=== PATIENT | female | born 1975 ===

== ENCOUNTER → 2018-08-26 | Outpatient (CLI) | payer MEDICARE, OTHER ==
--- NOTE | 2018-08-27 11:02 | MM ---
Reason for exam: screening (asymptomatic). Last mammogram was performed 1 year and 5 months ago. History: Patient is postmenopausal. Taking estrogen for 2 years beginning at age 40. Physical Findings: A clinical breast exam by your physician is recommended on an annual basis and results should be correlated with mammographic findings. MG 3D Screening Mammo W/Cad Bilateral CC and MLO view(s) were taken. Prior study comparison: March 27, 2017, mammogram, performed at [place]. January 03, 2016, mammogram, performed at [place]. The breast tissue is heterogeneously dense. This may lower the sensitivity of mammography. There is chronic nodularity in the left breast. No significant changes when compared with prior studies. ASSESSMENT: Benign, BI-RAD 2 RECOMMENDATION: Routine screening mammogram of both breasts in 1 year.
== END | disposition home or self-care (01) ==
LOC: RADMAMWWP 16:54
PROVIDERS: ATTEND Family Medicine
DX: Z12.31 Encounter for screening mammogram for malignant neoplasm of breast (principal)
CPT/HCPCS: 77063; 77067

== ENCOUNTER 2019-04-06 13:28 | Emergency (ER) | payer MEDICARE, OTHER ==
[2019-04-06] MEDS ORDERED: SODIUM CHLORIDE 0.9% 500 ML 500 ML IV STA (14:07)
[2019-04-06] MEDS ORDERED: LORazepam 2 MG/ML INJ IV STA (14:08)
[2019-04-06 15:29] LABS: Basophils % (A) 0 %; Eosinophils # (A) 0.1 k/uL (0-0.7); Eosinophils % (A) 1 %; HCT 38.3 % (34.0-46.0); HGB 12.4 gm/dL (11.4-16.0); Lymphocytes # (A) 1.2 k/uL (1.0-4.8); Lymphocytes % (A) 17 %; MCH 29.1 pg (25.0-35.0); MCHC 32.5 g/dL (31.0-37.0); MCV 89.6 fL (80.0-100.0); Mean Platelet Volume 6.6; Monocytes # (A) 0.2 k/uL (0-1.0); Monocytes % (A) 3 %; Neutrophils # (A) 5.4 k/uL (1.3-7.7); Neutrophils % (A) 77 %; Platelet Count 235 k/uL (150-450); RBC 4.28 m/uL (3.80-5.40); RDW 13.8 % (11.5-15.5)
[2019-04-06 15:37] LABS: ALT 18 U/L (9-52); AST 19 U/L (14-36); African American GFR (CKD) >90 (>60 ml/min/1.73 sqM); Albumin 4.3 g/dL (3.5-5.0); Alkaline Phosphatase 76 U/L (38-126); Anion Gap 9 mmol/L; Blood Urea Nitrogen 14 mg/dL (7-17); Calcium 9.7 mg/dL (8.4-10.2); Carbon Dioxide 28 mmol/L (22-30); Chloride 105 mmol/L (98-107); Glucose 130 mg/dL (74-99); Magnesium 1.8 mg/dL (1.6-2.3); Potassium 3.4 mmol/L (3.5-5.1); Sodium 142 mmol/L (137-145); Total Bilirubin 0.2 mg/dL (0.2-1.3); Total Protein 6.7 g/dL (6.3-8.2)
[2019-04-06 15:41] LABS: INR 0.9 (<1.2)
[2019-04-06 15:42] LABS: D-Dimer 0.24 mg/L FEU (<0.60); Partial Thromboplastin Time 24.4 sec (22.0-30.0); Prothrombin Time 9.6 sec (9.0-12.0)
[2019-04-06 15:53] LABS: T4, Free (Free Thyroxine) 0.97 ng/dL (0.78-2.19)
--- NOTE | 2019-04-06 16:22 | XR ---
EXAMINATION TYPE: XR chest 2V DATE OF EXAM: 04/06/2019 COMPARISON: NONE HISTORY: Shortness of breath and palpitations TECHNIQUE: Frontal and lateral views of the chest are obtained. FINDINGS: There is no focal air space opacity, pleural effusion, or pneumothorax seen. Central perib ronchial cuffing is noted on the lateral view. The cardiac silhouette size is within normal limits. The osseous structures are intact. IMPRESSION: No acute cardiopulmonary process. There is mild central peribronchial cuffing on the lat eral view that can be seen in reactive or infectious airway disease such as bronchitis.
[2019-04-06] MEDS ORDERED: methylPREDNISolone SOD SUCCI 125 MG/2 ML VIAL IV STA (16:31)
[2019-04-06] MEDS ORDERED: cefTRIAXone IN SWFI 1,000 MG/10 ML SYRINGE IVP STA (16:31)
[2019-04-06] MEDS ORDERED: IPRATROPIUM-ALBUTEROL 3 ML NEB INHALATION STA (16:31)
--- NOTE | 2019-04-06 16:35 | ED ---
General Adult HPI - General Chief complaint: Arrhythmia/Palpitations Stated complaint: Heart Racing, Shaking, Shortness of breath Time Seen by Provider: 04/06/19 13:30 Source: patient, RN notes reviewed Mode of arrival: wheelchair Limitations: no limitations - History of Present Illness Initial comments: This is a 43-year-old female presents emergency department with past medical history significant for smoking. Patient states the last 3 or 4 days she's had quite a bit of a cough and is feeling somewhat short of breath but she's also noted that she's having palpitations that started at work today. Patient states she felt as though her heart was racing today. Patient denies any chest pain. Patient denies any abdominal pain. Patient denies any lightheadedness or dizziness. Patient denies any nausea or vomiting. Patient states she just has this productive cough and feels as though her heart is racing. Patient states she did take breathing treatment today and it has not helped much. Patient denies any calf pain or leg swelling. - Related Data Home Medications Medication Instructions Recorded Confirmed Albuterol Inhaler [Ventolin Hfa 2 puff INHALATION RT-Q6H PRN 04/06/19 04/06/19 Inhaler] Cholecalciferol [Vitamin D3 (25 1,000 unit PO HS 04/06/19 04/06/19 Mcg = 1000 Iu)] DULoxetine HCL [Cymbalta] 30 mg PO HS 04/06/19 04/06/19 Estradiol [Estrace] 1 mg PO HS 04/06/19 04/06/19 Loratadine [Claritin] 10 mg PO HS 04/06/19 04/06/19 Multivitamins, Thera [Multivitamin 1 tab PO HS 04/06/19 04/06/19 (formulary)] [place]-3 Fatty Acids/Fish Oil [Fish 1 cap PO HS 04/06/19 04/06/19 Oil 1,000 mg Softgel] predniSONE See Taper PO DIRECTED 04/06/19 04/06/19 Previous Rx's Medication Instructions Recorded Albuterol Inhaler [Ventolin Hfa 1 - 2 puff INHALATION Q6HR PRN #2 04/06/19 Inhaler] puff Azithromycin [Zithromax Tri-Wei] 500 mg PO DAILY #3 tab 04/06/19 predniSONE 40 mg PO DAILY #8 tab 04/06/19 Allergies Allergy/AdvReac Type Severity Reaction Status Date / Time No Known Allergies Allergy Verified 04/06/19 14:07 Review of Systems ROS Statement: Those systems with pertinent positive or pertinent negative responses have been documented in the HPI. ROS Other: All systems not noted in ROS Statement are negative. Past Medical History Past Medical History: No Reported History History of Any Multi-Drug Resistant Organisms: None Reported Past Surgical History: Hysterectomy Past Psychological History: Anxiety, Depression Smoking Status: Current every day smoker Past Alcohol Use History: Occasional Past Drug Use History: None Reported General Exam - General Exam Comments Initial Comments: GENERAL: Patient is well-developed and well-nourished. Patient is nontoxic and well- hydrated and is in mild distress. ENT: Neck is soft and supple. No significant lymphadenopathy is noted. Oropharynx is clear. Moist mucous membranes. Neck has full range of motion without eliciting any pain. EYES: The sclera were anicteric and conjunctiva were pink and moist. Extraocular movements were intact and pupils were equal round and reactive to light. Eyelids were unremarkable. PULMONARY: Patient has diffuse expiratory wheezing CARDIOVASCULAR: There is a regular rate and rhythm without any murmurs gallops or rubs. ABDOMEN: Soft and nontender with normal bowel sounds. SKIN: Skin is clear with no lesions or rashes and otherwise unremarkable. NEUROLOGIC: Patient is alert and oriented x3. Cranial nerves II through XII are grossly intact. Motor and sensory are also intact. Normal speech, volume and content. Symmetrical smile. MUSCULOSKELETAL: Normal extremities with adequate strength and full range of motion. No lower extremity swelling or edema. No calf tenderness. LYMPHATICS: No significant lymphadenopathy is noted PSYCHIATRIC: Normal psychiatric evaluation. Limitations: no limitations Course Vital Signs 04/06/19 04/06/19 04/06/19 13:34 16:40 16:54 Temperature 99.0 F Pulse Rate 133 H 104 H 103 H Respiratory 20 28 H Rate Blood Pressure 130/70 O2 Sat by Pulse 97 Oximetry 04/06/19 18:51 Temperature 101.9 F H Pulse Rate 111 H Respiratory 20 Rate Blood Pressure 153/94 O2 Sat by Pulse 95 Oximetry Medical Decision Making - Medical Decision Making EKG shows sinus tachycardia at 118 bpm OK interval is 162 QRS is 92 QT interval 320 QTC is 448. Patient's EKG shows no ST segment elevation or depression. Chest x-ray shows no acute abnormality. - Lab Data Result diagrams: 04/06/19 15:15 04/06/19 15:15 Lab Results 04/06/19 04/06/19 04/06/19 Range/Units 15:15 15:15 15:15 WBC 7.0 (3.8-10.6) k/uL RBC 4.28 (3.80-5.40) m/uL Hgb 12.4 (11.4-16.0) gm/dL Hct 38.3 (34.0-46.0) % MCV 89.6 (80.0-100.0) fL MCH 29.1 (25.0-35.0) pg MCHC 32.5 (31.0-37.0) g/dL RDW 13.8 (11.5-15.5) % Plt Count 235 (150-450) k/uL Neutrophils % 77 % Lymphocytes % 17 % Monocytes % 3 % Eosinophils % 1 % Basophils % 0 % Neutrophils # 5.4 (1.3-7.7) k/uL Lymphocytes # 1.2 (1.0-4.8) k/uL Monocytes # 0.2 (0-1.0) k/uL Eosinophils # 0.1 (0-0.7) k/uL Basophils # 0.0 (0-0.2) k/uL PT 9.6 (9.0-12.0) sec INR 0.9 (<1.2) APTT 24.4 (22.0-30.0) sec D-Dimer 0.24 (<0.60) mg/L FEU Sodium 142 (137-145) mmol/L Potassium 3.4 L (3.5-5.1) mmol/L Chloride 105 (98-107) mmol/L Carbon Dioxide 28 (22-30) mmol/L Anion Gap 9 mmol/L BUN 14 (7-17) mg/dL Creatinine 0.49 L (0.52-1.04) mg/dL Est GFR (CKD-EPI)AfAm >90 (>60 ml/min/1.73 sqM) Est GFR (CKD-EPI)NonAf >90 (>60 ml/min/1.73 sqM) Glucose 130 H (74-99) mg/dL Plasma Lactic Acid Zeb (0.7-2.0) mmol/L Calcium 9.7 (8.4-10.2) mg/dL Magnesium 1.8 (1.6-2.3) mg/dL Total Bilirubin 0.2 (0.2-1.3) mg/dL AST 19 (14-36) U/L ALT 18 (9-52) U/L Alkaline Phosphatase 76 (38-126) U/L Troponin I (0.000-0.034) ng/mL Total Protein 6.7 (6.3-8.2) g/dL Albumin 4.3 (3.5-5.0) g/dL TSH 0.560 (0.465-4.680) mIU/L Free T4 0.97 (0.78-2.19) ng/dL 04/06/19 04/06/19 Range/Units 15:15 15:15 WBC (3.8-10.6) k/uL RBC (3.80-5.40) m/uL Hgb (11.4-16.0) gm/dL Hct (34.0-46.0) % MCV (80.0-100.0) fL MCH (25.0-35.0) pg MCHC (31.0-37.0) g/dL RDW (11.5-15.5) % Plt Count (150-450) k/uL Neutrophils % % Lymphocytes % % Monocytes % % Eosinophils % % Basophils % % Neutrophils # (1.3-7.7) k/uL Lymphocytes # (1.0-4.8) k/uL Monocytes # (0-1.0) k/uL Eosinophils # (0-0.7) k/uL Basophils # (0-0.2) k/uL PT (9.0-12.0) sec INR (<1.2) APTT (22.0-30.0) sec D-Dimer (<0.60) mg/L FEU Sodium (137-145) mmol/L Potassium (3.5-5.1) mmol/L Chloride (98-107) mmol/L Carbon Dioxide (22-30) mmol/L Anion Gap mmol/L BUN (7-17) mg/dL Creatinine (0.52-1.04) mg/dL Est GFR (CKD-EPI)AfAm (>60 ml/min/1.73 sqM) Est GFR (CKD-EPI)NonAf (>60 ml/min/1.73 sqM) Glucose (74-99) mg/dL Plasma Lactic Acid Zeb 1.9 (0.7-2.0) mmol/L Calcium (8.4-10.2) mg/dL Magnesium (1.6-2.3) mg/dL Total Bilirubin (0.2-1.3) mg/dL AST (14-36) U/L ALT (9-52) U/L Alkaline Phosphatase (38-126) U/L Troponin I <0.012 (0.000-0.034) ng/mL Total Protein (6.3-8.2) g/dL Albumin (3.5-5.0) g/dL TSH (0.465-4.680) mIU/L Free T4 (0.78-2.19) ng/dL Disposition Clinical Impression: Bronchitis with bronchospasm Disposition: HOME SELF-CARE Condition: Good Instructions (If sedation given, give patient instructions): Acute Bronchitis (ED), Bronchospasm (ED) Prescriptions: predniSONE 40 mg PO DAILY #8 tab Albuterol Inhaler [Ventolin Hfa Inhaler] 1 - 2 puff INHALATION Q6HR PRN #2 puff PRN Reason: Difficulty breathing Azithromycin [Zithromax Tri-Wei] 500 mg PO DAILY #3 tab Is patient prescribed a controlled substance at d/c from ED?: No Referrals: Fátima Gongora DO [Primary Care Provider] - 1-2 days Time of Disposition: 18:56
[2019-04-06 18:52] VITALS: BP 153/94; PULSE 111; RESP 20; TEMP 101.9
[2019-04-06] MEDS ORDERED: IBUPROFEN 600 MG TAB PO STA (18:52)
[2019-04-06] MEDS ORDERED: ACETAMINOPHEN TAB 500 MG TAB PO STA (18:52)
[2019-04-06] MEDS ORDERED: AZITHROMYCIN 500 MG TAB PO STA (19:06)
== END 2019-04-06 19:21 | disposition home or self-care (01) ==
LOC: EC 13:28
DX: J40 Bronchitis, not specified as acute or chronic (principal); J98.01 Acute bronchospasm; R00.0 Tachycardia, unspecified; F32.9 Major depressive disorder, single episode, unspecified; F41.9 Anxiety disorder, unspecified; F17.200 Nicotine dependence, unspecified, uncomplicated; Z79.52 Long term (current) use of systemic steroids; Z79.890 Hormone replacement therapy; Z79.899 Other long term (current) drug therapy
CPT/HCPCS: 36415; 94640; 93005; 85379; 84439; 80053; 83605; 83735; 84443; 84484; 85025; 85610; 85730; 87040; 71046; 99285; 96374; 96375 ×2; 96361 ×3; J2060; J2930; J0696

== ENCOUNTER 2019-08-22 20:05 | Emergency (ER) | payer BC, MEDICARE, OTHER ==
[2019-08-22] MEDS ORDERED: DICYCLOMINE 10 MG/ML 2 ML AMP IM STA (20:38)
[2019-08-22] MEDS ORDERED: PANTOPRAZOLE 40 MG/10 ML VIAL IVP STA (20:38)
[2019-08-22] MEDS ORDERED: ONDANSETRON 4 MG/2 ML VIAL IVP STA (20:38)
[2019-08-22] MEDS ORDERED: SODIUM CHLORIDE 0.9% 1,000 ML IV STA (20:38)
--- NOTE | 2019-08-22 20:38 | ED ---
Abdominal Pain HPI - General Chief Complaint: Abdominal Pain Stated Complaint: Abd Pain Time Seen by Provider: 08/22/19 20:14 Source: patient, family Mode of arrival: ambulatory Limitations: no limitations - History of Present Illness Initial Comments: Patient is a 43-year-old female with history of IBS presenting to the emergency department with chief complaint of abdominal pain nausea vomiting. Patient reports right upper quadrant abdominal pain for about one month along with bloating. Patient reports the pain has been exacerbated the last few days. She states the pain is same time she developed one episode of nonbilious, nonbloody vomiting daily with intermittent nausea. She reports the pain is not exacerbated after by mouth intake. Patient denies taking any medication to alleviate his symptoms. Aside from hysterectomy denies any previous abdominal surgery. - Related Data Home Medications Medication Instructions Recorded Confirmed Albuterol Inhaler [Ventolin Hfa 2 puff INHALATION RT-Q6H PRN 04/06/19 04/06/19 Inhaler] Cholecalciferol [Vitamin D3 (25 1,000 unit PO HS 04/06/19 04/06/19 Mcg = 1000 Iu)] DULoxetine HCL [Cymbalta] 30 mg PO HS 04/06/19 04/06/19 Estradiol [Estrace] 1 mg PO HS 04/06/19 04/06/19 Loratadine [Claritin] 10 mg PO HS 04/06/19 04/06/19 Multivitamins, Thera [Multivitamin 1 tab PO HS 04/06/19 04/06/19 (formulary)] [place]-3 Fatty Acids/Fish Oil [Fish 1 cap PO HS 04/06/19 04/06/19 Oil 1,000 mg Softgel] predniSONE See Taper PO DIRECTED 04/06/19 04/06/19 Previous Rx's Medication Instructions Recorded Albuterol Inhaler [Ventolin Hfa 1 - 2 puff INHALATION Q6HR PRN #2 04/06/19 Inhaler] puff Azithromycin [Zithromax Tri-Wei] 500 mg PO DAILY #3 tab 04/06/19 predniSONE 40 mg PO DAILY #8 tab 04/06/19 Dicyclomine [Bentyl] 20 mg PO TID #30 tablet 08/22/19 Pantoprazole Sodium [Protonix] 20 mg PO DAILY #15 tablet. 08/22/19 Allergies Allergy/AdvReac Type Severity Reaction Status Date / Time No Known Allergies Allergy Verified 08/22/19 20:12 Review of Systems ROS Statement: Those systems with pertinent positive or pertinent negative responses have been documented in the HPI. ROS Other: All systems not noted in ROS Statement are negative. Past Medical History Past Medical History: No Reported History History of Any Multi-Drug Resistant Organisms: None Reported Past Surgical History: Hysterectomy Past Psychological History: Anxiety, Depression Smoking Status: Former smoker Past Alcohol Use History: Occasional Past Drug Use History: None Reported General Exam Limitations: no limitations General appearance: alert, in no apparent distress Head exam: Present: atraumatic, normocephalic, normal inspection Eye exam: Present: normal appearance Pupils: Present: normal accommodation ENT exam: Present: normal exam, normal oropharynx, mucous membranes moist, TM's normal bilaterally, normal external ear exam Neck exam: Present: normal inspection, full ROM Respiratory exam: Present: normal lung sounds bilaterally Cardiovascular Exam: Present: regular rate, normal rhythm, normal heart sounds GI/Abdominal exam: Present: soft, distended (Mild distention), tenderness (Right upper quadrant tenderness. Positive Downs. Generalized right lower quadrant tenderness), normal bowel sounds. Absent: guarding, pulsatile mass, hernia Extremities exam: Present: normal inspection, full ROM Back exam: Present: normal inspection, full ROM. Absent: CVA tenderness (R), CVA tenderness (L) Neurological exam: Present: alert, oriented X3 Psychiatric exam: Present: normal affect, normal mood Skin exam: Present: warm, dry, intact, normal color Course Vital Signs 08/22/19 08/22/19 20:08 22:50 Temperature 98.2 F 98 F Pulse Rate 82 80 Respiratory 20 18 Rate Blood Pressure 132/88 122/72 O2 Sat by Pulse 99 100 Oximetry Medical Decision Making - Medical Decision Making Patient is a 43-year-old female with history of IBS presenting to emergency Department with a chief complaint of abdominal pain patient has been having right upper quadrant abdominal pain and bloating for the past month intermitte ntly but as increased in severity over the last few days. Physical exam shows positive Downs sign with mild right lower quadrant tenderness but negative McBurney point. All other size negative for appendicitis. Nausea and vomiting at home. Patient given antiemetics fluids and analgesia. Reevaluation patient does report improvement or symptoms. CBC CMP and UA are unremarkable. Abdominal ultrasound shows no signs of appendicitis, gallstones or other underlying pathologies. KUB shows no signs of obstruction. I suspect the symptoms to be secondary to flareup of her IBS. She discharged with Bentyl and Zofran. Patient advised to avoid eating fatty foods and monitor for signs of improvement of symptoms. Patient advised to follow-up with primary care. Strict return parameters were thoroughly discussed with patient was upsetting agreeable. Case discussed with physician. - Lab Data Result diagrams: 08/22/19 20:30 08/22/19 20:30 Lab Results 08/22/19 08/22/19 08/22/19 Range/Units 20:30 20:30 20:30 WBC 7.2 (3.8-10.6) k/uL RBC 4.64 (3.80-5.40) m/uL Hgb 13.4 (11.4-16.0) gm/dL Hct 39.5 (34.0-46.0) % MCV 85.1 (80.0-100.0) fL MCH 28.9 (25.0-35.0) pg MCHC 34.0 (31.0-37.0) g/dL RDW 12.3 (11.5-15.5) % Plt Count 325 (150-450) k/uL Neutrophils % 57 % Lymphocytes % 31 % Monocytes % 5 % Eosinophils % 3 % Basophils % 1 % Neutrophils # 4.1 (1.3-7.7) k/uL Lymphocytes # 2.2 (1.0-4.8) k/uL Monocytes # 0.4 (0-1.0) k/uL Eosinophils # 0.3 (0-0.7) k/uL Basophils # 0.1 (0-0.2) k/uL Sodium 141 (137-145) mmol/L Potassium 3.9 (3.5-5.1) mmol/L Chloride 107 (98-107) mmol/L Carbon Dioxide 26 (22-30) mmol/L Anion Gap 8 mmol/L BUN 15 (7-17) mg/dL Creatinine 0.52 (0.52-1.04) mg/dL Est GFR (CKD-EPI)AfAm >90 (>60 ml/min/1.73 sqM) Est GFR (CKD-EPI)NonAf >90 (>60 ml/min/1.73 sqM) Glucose 114 H (74-99) mg/dL Calcium 10.1 (8.4-10.2) mg/dL Total Bilirubin 0.4 (0.2-1.3) mg/dL AST 35 (14-36) U/L ALT 28 (9-52) U/L Alkaline Phosphatase 85 (38-126) U/L Total Protein 7.7 (6.3-8.2) g/dL Albumin 4.7 (3.5-5.0) g/dL Amylase 62 (30-110) U/L Lipase 69 (23-300) U/L Urine Color Light Yellow Urine Appearance Clear (Clear) Urine pH 5.5 (5.0-8.0) Ur Specific Peck 1.009 (1.001-1.035) Urine Protein Negative (Negative) Urine Glucose (UA) Negative (Negative) Urine Ketones Negative (Negative) Urine Blood Negative (Negative) Urine Nitrite Negative (Negative) Urine Bilirubin Negative (Negative) Urine Urobilinogen <2.0 (<2.0) mg/dL Ur Leukocyte Esterase Negative (Negative) Disposition Clinical Impression: Right upper quadrant abdominal pain, Bloating Disposition: HOME SELF-CARE Condition: Stable Instructions (If sedation given, give patient instructions): Abdominal Pain (ED) Additional Instructions: Please take prescribed medication as directed. Please follow up with a GI specialist. Please return to emergency department if symptoms worsen. Prescriptions: Dicyclomine [Bentyl] 20 mg PO TID #30 tablet Pantoprazole Sodium [Protonix] 20 mg PO DAILY #15 tablet.dr Is patient prescribed a controlled substance at d/c from ED?: No Referrals: Hermelinda Sumner PAC [Family Provider] - 1-2 days Time of Disposition: 22:11
[2019-08-22 20:58] LABS: Basophils # (A) 0.1 k/uL (0-0.2); Basophils % (A) 1 %; Eosinophils # (A) 0.3 k/uL (0-0.7); Eosinophils % (A) 3 %; HCT 39.5 % (34.0-46.0); HGB 13.4 gm/dL (11.4-16.0); Lymphocytes # (A) 2.2 k/uL (1.0-4.8); Lymphocytes % (A) 31 %; MCH 28.9 pg (25.0-35.0); MCV 85.1 fL (80.0-100.0); Mean Platelet Volume 6.5; Monocytes # (A) 0.4 k/uL (0-1.0); Monocytes % (A) 5 %; Neutrophils # (A) 4.1 k/uL (1.3-7.7); Neutrophils % (A) 57 %; Platelet Count 325 k/uL (150-450); RBC 4.64 m/uL (3.80-5.40); RDW 12.3 % (11.5-15.5); WBC 7.2 k/uL (3.8-10.6)
[2019-08-22 20:59] LABS: Appearance,Urine Clear (Clear); Bilirubin,Urine Negative (Negative); Blood,Urine Negative (Negative); Color,Urine Light Yellow; Glucose,Urine (UA) Negative (Negative); Ketones,Urine Negative (Negative); Leukocyte Esterase,Urine Negative (Negative); Nitrite,Urine Negative (Negative); PH, Urine 5.5 (5.0-8.0); Protein,Urine Negative (Negative); Specific Gravity,Urine 1.009 (1.001-1.035); Urobilinogen,Urine <2.0 mg/dL (<2.0)
[2019-08-22 21:11] LABS: ALT 28 U/L (9-52); AST 35 U/L (14-36); African American GFR (CKD) >90 (>60 ml/min/1.73 sqM); Albumin 4.7 g/dL (3.5-5.0); Alkaline Phosphatase 85 U/L (38-126); Amylase 62 U/L (30-110); Anion Gap 8 mmol/L; Blood Urea Nitrogen 15 mg/dL (7-17); Calcium 10.1 mg/dL (8.4-10.2); Carbon Dioxide 26 mmol/L (22-30); Chloride 107 mmol/L (98-107); Glucose 114 mg/dL (74-99); Non-African American GFR(CKD) >90 (>60 ml/min/1.73 sqM); Potassium 3.9 mmol/L (3.5-5.1); Sodium 141 mmol/L (137-145); Total Bilirubin 0.4 mg/dL (0.2-1.3); Total Protein 7.7 g/dL (6.3-8.2)
--- NOTE | 2019-08-22 21:34 | US ---
EXAMINATION TYPE: US abdomen complete DATE OF EXAM: 08/22/2019 COMPARISON: NONE CLINICAL HISTORY: Abdominal pain x 1 day. Patient's area of pain is in the RUQ. Nausea/vomiting. Hx k idney stone. EXAM MEASUREMENTS: Liver Length: 17.99 cm Gallbladder Wall: 0.25 cm CBD: 0.35 cm Spleen: 10.5 cm Right Kidney: 11.9 x 4.8 x 4.4 cm Left Kidney: 11.3 x 4.7 x 4.8 cm Pancreas: Imaged portions are within normal limits, limited evaluation of the tail due to bowel gas. Liver: Within normal limits. Gallbladder: Within normal limits. Evidence for sonographic Downs's sign: No CBD: Within normal limits. Spleen: Within normal limits. Right Kidney: No hydronephrosis. Left Kidney: No hydronephrosis. Upper IVC: Appears to be wnl Abd Aorta: Measures 2.37 cm proximally in sagittal plane. No ectasia or aneurysm along its visualize d segments. IMPRESSION: Negative abdominal ultrasound.
--- NOTE | 2019-08-22 21:56 | XR ---
EXAMINATION TYPE: XR KUB DATE OF EXAM: 08/22/2019 9:52 PM CLINICAL HISTORY: Abdominal pain, nausea, vomiting TECHNIQUE: Single upright KUB image of the abdomen is obtained. COMPARISON: None. FINDINGS: Scattered gas is seen in non-distended small bowel loops. Gas and fecal material is seen in non-distended colon. There is no visceromegaly, pneumoperitoneum, or abnormal calcification apprecia zaid. The osseous structures are intact. IMPRESSION: Overall nonobstructive bowel gas pattern.
[2019-08-22] MEDS ORDERED: ONDANSETRON 4 MG ODT STARTER PACK 2 TAB BTL PO STA (22:47)
[2019-08-22 22:51] VITALS: BP 122/72; PULSE 80; RESP 18; TEMP 98
== END 2019-08-22 22:54 | disposition home or self-care (01) ==
LOC: EC 20:05
DX: R10.11 Right upper quadrant pain (principal); R14.0 Abdominal distension (gaseous); R11.2 Nausea with vomiting, unspecified; F41.9 Anxiety disorder, unspecified; F32.9 Major depressive disorder, single episode, unspecified; Z79.899 Other long term (current) drug therapy; Z79.51 Long term (current) use of inhaled steroids; Z87.891 Personal history of nicotine dependence
CPT/HCPCS: 36415; 80053; 82150; 83690; 85025; 81003; 74018; 76700; 99284; 96374; 96375; 96361 ×2; J2405; S0119; C9113

== ENCOUNTER 2019-09-27 09:07 | Day surgery (SDC) | payer BC ==
[2019-09-23 13:39] VITALS: BMI 25.7
[~2019-09-27 09:07] MED LIST: LACTATED RINGERS 1,000 ML IV SCH; LIDOCAINE 1% 20 ML VIAL (10MG/ML) FOR IV START INTRADERMA PRN
[2019-09-27 10:16] VITALS: TEMP 97.3
[2019-09-27] MEDS ORDERED: PROPOFOL 10 MG/ML 20 ML VIAL IV ONE (10:17)
--- NOTE | 2019-09-27 10:20 | P.GSHP ---
History of Present Illness H&P Date: 09/27/19 Chief Complaint: Constipation Is a 40-year-old female with history constipation. Patient is today for colonoscopy. Past Medical History Past Medical History: Asthma History of Any Multi-Drug Resistant Organisms: None Reported Past Surgical History: Hysterectomy Additional Past Surgical History / Comment(s): LAPAROSCOPIC X4, OOPHERECTOMY Past Anesthesia/Blood Transfusion Reactions: Postoperative Nausea & Vomiting (PONV) Smoking Status: Former smoker - Past Family History Sister(s) Family Medical History: Cancer Medications and Allergies Home Medications Medication Instructions Recorded Confirmed Type Albuterol Inhaler [Ventolin Hfa 1 - 2 puff INHALATION Q6HR PRN #2 04/06/19 09/27/19 Rx Inhaler] puff Cholecalciferol [Vitamin D3 (25 1,000 unit PO HS 04/06/19 09/27/19 History Mcg = 1000 Iu)] Estradiol [Estrace] 1 mg PO HS 04/06/19 09/27/19 History Multivitamins, Thera [Multivitamin 1 tab PO 04/06/19 09/27/19 History (formulary)] [place]-3 Fatty Acids/Fish Oil [Fish 1 cap PO 04/06/19 09/27/19 History Oil 1,000 mg Softgel] Fluticasone Nasal [place] [Flonase 2 spr EA NOSTRIL DAILY 09/23/19 09/27/19 History Nasal Riddle] Allergies Allergy/AdvReac Type Severity Reaction Status Date / Time No Known Allergies Allergy Verified 09/27/19 09:56 Surgical - Exam Vital Signs Temp Pulse Resp BP Pulse Ox 97.3 F L 63 16 113/69 99 09/27/19 09:58 09/27/19 09:58 09/27/19 09:58 09/27/19 09:58 09/27/19 09:58 - General well developed, well nourished, no distress - Eyes PERRL - ENT normal pinna - Neck no masses - Respiratory normal expansion - Cardiovascular Rhythm: regular - Abdomen Abdomen: soft, non tender Assessment and Plan Assessment: Constipation. We'll perform colonoscopy.
--- NOTE | 2019-09-27 10:33 | P.OP ---
Date of Procedure: 09/27/19 Preoperative Diagnosis: Constipation Postoperative Diagnosis: Normal colon Procedure(s) Performed: Colonoscopy Anesthesia: MAC Surgeon: Lasha Cummins Pathology: none sent Condition: stable Disposition: PACU Description of Procedure: Normal colonoscopy
[2019-09-27 10:56] VITALS: BP 92/60; PULSE 76; RESP 16
== END 2019-09-27 11:09 | disposition home or self-care (01) ==
LOC: ORWHC2ENDO 09:07
PROVIDERS: ATTEND Surgery
DX: K59.00 Constipation, unspecified (principal); J45.909 Unspecified asthma, uncomplicated; Z90.710 Acquired absence of both cervix and uterus; Z87.891 Personal history of nicotine dependence; Z90.79 Acquired absence of other genital organ(s); Z79.3 Long term (current) use of hormonal contraceptives; Z79.899 Other long term (current) drug therapy; Z80.9 Family history of malignant neoplasm, unspecified
CPT/HCPCS: 45378; J2704

== ENCOUNTER → 2021-08-06 | Outpatient (CLI) | payer BC ==
--- NOTE | 2021-08-06 22:25 | CT ---
EXAMINATION TYPE: CT sinus wo con DATE OF EXAM: 08/06/2021 COMPARISON: NONE HISTORY: chronic sinusitis per order. Headaches with severe congestion for [address] DLP: 416.5 mGycm. Automated Exposure Control for Dose Reduction was Utilized. TECHNIQUE: CT scan of the sinuses is performed without contrast, axial images are obtained, coronal r eformatted images are also reviewed. FINDINGS: The paranasal sinuses including the frontal, ethmoid, sphenoid, and maxillary sinuses bila terally are well-aerated without abnormal opacification or suspicious air-fluid levels. The ostiomea abdiel complex is patent bilaterally on coronal image 18. Visualized portion of mastoid air cells show no abnormal opacification. The globes are intact bilate rally. Visualized portion of brain parenchyma is unremarkable. IMPRESSION: The sinuses are clear and the ostiomeatal complex is patent bilaterally currently.
== END | disposition home or self-care (01) ==
LOC: RADCTMAIN 15:44
PROVIDERS: ATTEND Otolaryngology
DX: J32.9 Chronic sinusitis, unspecified (principal)
CPT/HCPCS: 70486

== ENCOUNTER → 2023-04-14 | Outpatient (CLI) | payer BC ==
--- NOTE | 2023-04-15 20:40 | MM ---
Reason for Exam: Screening (asymptomatic). Last mammogram was performed 4 year(s) and 7 month(s) ago. Patient History: Menarche at age 12. First Full-Term at age 18. Left ovary removed at age 40. Right ovary removed at age 40. Hysterectomy at age 40. Postmenopausal. Estrogen, starting at age 40 for 2 years. Risk Values: Thania 5 year model risk: 0.6%. NCI Lifetime model risk: 6.8%. Prior Study Comparison: 01/03/2016 Screening Mammogram, [place]. 03/27/2017 Screening Mammogram, [place]. 08/26/2018 Bilateral Screening Mammogram, [facility]. Tissue Density: The breast tissue is heterogeneously dense. This may lower the sensitivity of mammography. Findings: Analyzed By CAD. There is no suspicious group of microcalcifications or new suspicious mass in either breast. Overall Assessment: Negative, BI-RAD 1 Management: Screening Mammogram of both breasts in 1 year. . Patient should continue monthly self-breast exams. A clinical breast exam by your physician is recommended on an annual basis. This exam should not preclude additional follow-up of suspicious palpable abnormalities. Note on Thania scores and lifetime risk: 1. A Thania score greater than 3% is considered moderate risk. If this is the case, consider specialist referral to assess eligibility for a risk reducing agent. 2. If overall lifetime risk for the development of breast cancer is 20% or higher, the patient may qualify for future screening with alternating mammogram and breast MRI. Electronically signed and approved by: Genesis Ayon M.D. Radiologist
== END | disposition home or self-care (01) ==
LOC: RADMAMWWP 16:41
PROVIDERS: ATTEND Family Medicine
DX: Z12.31 Encounter for screening mammogram for malignant neoplasm of breast (principal); Z78.0 Asymptomatic menopausal state
CPT/HCPCS: 77063; 77067

== ENCOUNTER 2023-09-15 07:35 | Emergency (ER) | payer BC ==
[2023-09-15] MEDS ORDERED: KETOROLAC 15 MG/ML 1 ML VIAL IM STA (07:59)
--- NOTE | 2023-09-15 08:04 | ED ---
General Adult HPI - General Chief complaint: Fall Stated complaint: Fall-sacral Pain Time Seen by Provider: 09/15/23 07:54 Source: patient, RN notes reviewed Mode of arrival: ambulatory Limitations: no limitations - History of Present Illness Initial comments: Patient is a pleasant 47-year-old female presenting to the emergency department with concern for states she was walking up steps following the tailbone. Patient has had discomfort in that region since that time. Discomfort rated 6/10. Patient did not actually injure her lower back, tailbone region. No head injury or loss of consciousness. No neck or back pain otherwise. No chest pain or dyspnea. No abdominal pain. No weakness. No incontinence or retention of bowel or bladder. - Related Data Home Medications Medication Instructions Recorded Confirmed Cholecalciferol [Vitamin D3 (25 1,000 unit PO HS 04/06/19 09/27/19 Mcg = 1000 Iu)] Multivitamins, Thera [Multivitamin 1 tab PO HS 04/06/19 09/27/19 (formulary)] [place]-3 Fatty Acids/Fish Oil [Fish 1 cap PO HS 04/06/19 09/27/19 Oil 1,000 mg Softgel] estradioL [Estrace] 1 mg PO HS 04/06/19 09/27/19 Fluticasone Nasal [place] [Flonase 2 spr EA NOSTRIL DAILY 09/23/19 09/27/19 Nasal [place]] Previous Rx's Medication Instructions Recorded Albuterol Inhaler [Ventolin Hfa 1 - 2 puff INHALATION Q6HR PRN #2 04/06/19 Inhaler] puff Ibuprofen [Motrin] 600 mg PO Q6HR PRN #20 tab 09/15/23 Allergies Allergy/AdvReac Type Severity Reaction Status Date / Time No Known Allergies Allergy Verified 09/15/23 07:53 Review of Systems ROS Statement: Those systems with pertinent positive or pertinent negative responses have been documented in the HPI. ROS Other: All systems not noted in ROS Statement are negative. Constitutional: Denies: fever Eyes: Denies: eye pain ENT: Denies: ear pain Respiratory: Denies: cough Cardiovascular: Denies: chest pain Endocrine: Denies: fatigue Gastrointestinal: Denies: abdominal pain Genitourinary: Denies: dysuria Musculoskeletal: Reports: as per HPI Skin: Denies: rash Neurological: Denies: weakness Past Medical History Past Medical History: Asthma History of Any Multi-Drug Resistant Organisms: None Reported Past Surgical History: Hysterectomy Additional Past Surgical History / Comment(s): LAPAROSCOPIC X4, OOPHERECTOMY Past Anesthesia/Blood Transfusion Reactions: Postoperative Nausea & Vomiting (PONV) Past Psychological History: Anxiety, Depression Smoking Status: Never smoker Past Alcohol Use History: Occasional Past Drug Use History: None Reported - Past Family History Sister(s) Family Medical History: Cancer General Exam Limitations: no limitations General appearance: alert, in no apparent distress Head exam: Present: normocephalic Eye exam: Present: normal appearance Neck exam: Present: normal inspection. Absent: tenderness Respiratory exam: Present: normal lung sounds bilaterally Cardiovascular Exam: Present: regular rate, normal rhythm GI/Abdominal exam: Present: soft. Absent: distended, tenderness Extremities exam: Present: normal inspection, full ROM. Absent: tenderness Back exam: Present: tenderness (Tenderness in the sacral region. Otherwise no vertebral tenderness.) Neurological exam: Absent: motor sensory deficit Expanded Sensory exam: Lower Extremity Light Touch: Normal Motor strength exam: RLE: 5, LLE: 5 Psychiatric exam: Present: normal affect, normal mood Skin exam: Present: normal color Course Vital Signs 09/15/23 07:51 Temperature 97.8 F Pulse Rate 97 Respiratory 20 Rate Blood Pressure 143/94 O2 Sat by Pulse 99 Oximetry Medical Decision Making - Medical Decision Making Was pt. sent in by a medical professional or institution (Dr. PA, SECURITY INCIDENT RESPONSE ENGINEER, urgent care, hospital, or retirement...) When possible be specific @ -No Did you speak to anyone other than the patient for history (EMS, parent, family, police, friend...)? What history was obtained from this source @ -No Did you review nursing and triage notes (agree or disagree)? Why? @ -I reviewed and agree with nursing and triage notes Were old charts reviewed (outside hosp., previous admission, EMS record, old EKG, old radiological studies, urgent care reports/EKG's, retirement records)? Report findings @ -No old charts were reviewed Differential Diagnosis (chest pain, altered mental status, abdominal pain women, abdominal pain men, vaginal bleeding, weakness, fever, dyspnea, syncope, headache, dizziness, GI bleed, back pain, seizure, CVA, palpatations, mental health, musculoskeletal)? @ -Differential Musculoskeletal Muscular strain, contusion, ligament sprain, fracture, arthritis, septic arthritis, bursitis, cellulitis, muscle spasm, nerve compression, DVT, arterial occlusion, herpes zoster, electrolyte abnormality, tumor.... This is not meant to be in all inclusive list EKG interpreted by me (3pts min.). @ -As above X-rays interpreted by me (1pt min.). @ -Sacral x-ray shows no evidence of fracture CT interpreted by me (1pt min.). @ -None done U/S interpreted by me (1pt. min.). @ -None done What testing was considered but not performed or refused? (CT, X-rays, U/S, labs)? Why? @ -None What meds were considered but not given or refused? Why? @ -None Did you discuss the management of the patient with other professionals (professionals i.e. , PA, SECURITY INCIDENT RESPONSE ENGINEER, lab, RT, psych nurse, manager social responsibility, pie maker machine, teacher, fisheries technical officer, home health care case manager)? Give summary @ -No Was smoking cessation discussed for >3mins.? @ -No Was critical care preformed (if so, how long)? @ -No Were there social determinants of health that impacted care today? How? (Home lessness, low income, unemployed, alcoholism, drug addiction, transportation, low edu. Level, literacy, decrease access to med. care, snf, rehab)? @ -No Was there de-escalation of care discussed even if they declined (Discuss DNR or withdrawal of care, Hospice)? DNR status @ -No What co-morbidities impacted this encounter? (DM, HTN, Smoking, COPD, CAD, Cancer, CVA, ARF, Chemo, Hep., AIDS, mental health diagnosis, sleep apnea, morbid obesity)? @ -None Was patient admitted / discharged? Hospital course, mention meds given and route, prescriptions, significant lab abnormalities, going to OR and other pertinent info. @ -Patient reevaluated and updated. Patient be discharged with follow-up with her primary care physician. Undiagnosed new problem with uncertain prognosis? @ -No Drug Therapy requiring intensive monitoring for toxicity (Heparin, Nitro, Insulin, Cardizem)? @ -No Were any procedures done? @ -No Diagnosis/symptom? @ -sacral contusion Acute, or Chronic, or Acute on Chronic? @ -Acute Uncomplicated (without systemic symptoms) or Complicated (systemic symptoms)? @ -default Side effects of treatment? @ -No Exacerbation, Progression, or Severe Exacerbation? @ -No Poses a threat to life or bodily function? How? (Chest pain, [place], [place], pneumonia, PE, COPD, DKA, ARF, appy, cholecystitis, CVA, Diverticulitis, Homicidal, Suicid al, threat to staff... and all critical care pts) @ -No Disposition Clinical Impression: Sacral contusion Disposition: HOME SELF-CARE Condition: Stable Instructions (If sedation given, give patient instructions): Back Pain (ED) Additional Instructions: Prescription sent to pharmacy. Please do follow-up with your primary care physician in the next day or 2 for recheck. Return for increased pain, weakness, loss of control of bowel or bladder, worsening or changing symptoms or any other concerns. Use inflatable doughnut to sit on. Prescriptions: Ibuprofen [Motrin] 600 mg PO Q6HR PRN #20 tab PRN Reason: Pain Is patient prescribed a controlled substance at d/c from ED?: No Referrals: Fátmia Gongora DO [Primary Care Provider] - 1-2 days Time of Disposition: 09:16
[2023-09-15] MEDS ORDERED: ACET/COD 300 MG/30 MG STARTER PACK 6 TAB BTL PO STA (09:15)
--- NOTE | 2023-09-15 09:21 | XR ---
EXAMINATION TYPE: XR sacrum coccyx DATE OF EXAM: 09/15/2023 COMPARISON: None HISTORY: Fall, pain TECHNIQUE: Sacrum and coccyx examined in 3 projections FINDINGS: Sacroiliac joints are normal. Alignment appears preserved. In the lateral plane there is suggestion of osseous irregularity along the anterior distal sacrum sug gestive for an underlying fracture. IMPRESSION: 1. Findings suggestive for a distal sacral fracture. Correlate with the location of the patient's pa in.
[2023-09-15 09:41] VITALS: BP 137/82; PULSE 86; RESP 16; TEMP 98.4
== END 2023-09-15 09:40 | disposition home or self-care (01) ==
LOC: EC 07:35
DX: S30.0XXA Contusion of lower back and pelvis, initial encounter (principal); J45.909 Unspecified asthma, uncomplicated; Z86.59 Personal history of other mental and behavioral disorders; W10.9XXA Fall (on) (from) unspecified stairs and steps, initial encounter; Y93.01 Activity, walking, marching and hiking
CPT/HCPCS: 72220; 99284; 96372; J1885

== ENCOUNTER → 2024-04-15 | Outpatient (CLI) | payer BC ==
--- NOTE | 2024-05-12 13:53 | MM ---
Reason for Exam: Screening (asymptomatic). Last mammogram was performed 1 year(s) and 1 month(s) ago. Patient History: Menarche at age 12. First Full-Term at age 18. Left ovary removed at age 40. Right ovary removed at age 40. Hysterectomy at age 40. Postmenopausal. Estrogen, starting at age 40 for 2 years. Risk Values: Thania 5 year model risk: 0.7%. NCI Lifetime model risk: 6.7%. Prior Study Comparison: 03/27/2017 Screening Mammogram, [facility]. 08/26/2018 Bilateral Screening Mammogram, [facility]. 04/14/2023 Bilateral MG 3D screening mammo w/cad, [facility]. Tissue Density: There are scattered areas of fibroglandular density. Findings: Analyzed By CAD. Right breast: There is no suspicious group of microcalcifications or new suspicious mass. Left breast: There is no suspicious group of microcalcifications or new suspicious mass. Overall Assessment: Negative, BI-RAD 1 Management: Screening Mammogram of both breasts in [address] [facility] will attempt to contact patient to return for supplemental views and ultrasound if indicated. Patient should continue monthly self-breast exams. A clinical breast exam by your physician is recommended on an annual basis. This exam should not preclude additional follow-up of suspicious palpable abnormalities. Note on Thania scores and lifetime risk: 1. A Thania score greater than 3% is considered moderate risk. If this is the case, consider specialist referral to assess eligibility for a risk reducing agent. 2. If overall lifetime risk for the development of breast cancer is 20% or higher, the patient may qualify for future screening with alternating mammogram and breast MRI. Electronically signed and approved by: Bobby Preciado DO
== END | disposition home or self-care (01) ==
LOC: RADMAMWWP 16:13
PROVIDERS: ATTEND Obstetrics & Gynecology
DX: Z12.31 Encounter for screening mammogram for malignant neoplasm of breast (principal); R92.323 Mammographic fibroglandular density, bilateral breasts; Z78.0 Asymptomatic menopausal state; Z90.721 Acquired absence of ovaries, unilateral
CPT/HCPCS: 77063; 77067

== ENCOUNTER → 2025-01-25 | Outpatient (CLI) | payer BC ==
[2025-01-25 18:05] LABS: Basophils # (A) 0.05 X 10*3/uL (0.00-0.10); Eosinophils # (A) 0.21 X 10*3/uL (0.04-0.35); Eosinophils % (A) 4.3 %; HCT 37.5 % (37.2-46.3); HGB 12.3 g/dL (12.0-15.0); MCH 28.9 pg (27.0-32.0); MCHC 32.8 g/dL (32.0-37.0); MCV 88.2 FL (80.0-97.0); Monocytes # (A) 0.39 X 10*3/uL (0.20-1.00); Monocytes % (A) 8.1 %; NRBC Per 100 WBC 0 X 10*3/uL (0.00-0.01); Neutrophils # (A) 2.67 X 10*3/uL (1.80-7.70); Neutrophils % (A) 55.2 %; Platelet Count 291 X 10*3/uL (140-440); RBC 4.25 X 10*6/uL (4.10-5.20); RDW 12.7 % (11.5-14.5); WBC 4.84 X 10*3/uL (4.50-10.00)
[2025-01-25 19:36] LABS: Erythrocyte Sedimentation Rate <1 mm/Hr (0-20)
[2025-01-26 02:56] LABS: ALT 32 U/L (8-44); AST 25 U/L (13-35); Blood Urea Nitrogen 15.1 mg/dL (9.0-27.0)
== END | disposition home or self-care (01) ==
LOC: LABWHC1 16:16
PROVIDERS: ATTEND Nurse Practitioner Family
DX: M47.819 Spondylosis without myelopathy or radiculopathy, site unspecified (principal)
CPT/HCPCS: 36415; 82565; 84450; 84460; 84520; 85025; 85652; 86141

== ENCOUNTER → 2025-02-02 | Outpatient (CLI) | payer BC ==
[2025-02-02 15:14] VITALS: BP 129/84; PULSE 93; RESP 12; TEMP 98
--- NOTE | 2025-02-02 15:45 | P.SLEEP ---
History of Present Illness DATE: 02/02/2025 CONSULTATION/NEW PATIENT EVALUATION HISTORY OF PRESENT ILLNESS/SLEEP-WAKE EVALUATION: 49-year-old lady had been e valuated in the sleep center for possible obstructive sleep apnea hypopnea syndrome. SLEEP SCHEDULE: Usually sleep schedule from 9 PM to 6 AM on weekdays and weekend. FALLING ASLEEP: No problems with falling asleep. DURING SLEEP: Patient snores, has witnessed episodes of stop breathing during the sleep, wakes up from sleep 3 times with nocturia. Positive history of restless leg symptoms and sweating no history of hypnogogical hallucinations, sleep paralysis, or cataplexy. DURING THE DAY/WAKE STATE: In the morning patient wake up tired, has problems with memory, concentration, irritability, depression and anxiety. Patient feels significant sleepiness during the day. [place] sleepiness scale is in a very high range of 15. Patient takes nap around 1 PM. Positive history of vivid dreams during naps. PAST MEDICAL HISTORY: Depression, psoriatic arthritis, asthma, hyperlipidemia, fibromyalgia, sinuses problems, anemia. PAST SURGICAL HISTORY: Hysterectomy. MEDICATIONS: Amitriptyline 25 mg once a day, hydralazine, fluticasone, sulfasalazine 500 mg once a day, progesterone 200 mg once a day, duloxetine 30 mg once a, aripiprazole 2 mg once a day, dapsone 7.5 mg once a day, albuterol, phentermine. SOCIAL HISTORY: Please see below. FAMILY HISTORY: Please see below. REVIEW OF SYSTEMS: Loud snoring, awakenings from sleep, sleepiness during the day. No fevers. No double vision. No recent chest pain. No shortness of breath. No abdominal pain. No bleeding episodes. No blood in urine. No seizure episodes. PHYSICAL EXAMINATION: GENERAL: A pleasant patient without any distress. VITAL SIGNS: Please see below, weight 179 pounds, BMI 30.2. HEENT: PERRLA, EOMI. Evaluation of oropharynx showed tongue protrudes midline, low position of soft palate Mallampati 4. NECK: Supple. No JVD. Thyroid is not palpable. 14.5 inches in circumference. LUNGS: Clear to percussion and to auscultation. Good air exchange. No wheezing or rhonchi. HEART: S1, S2 regular. No murmurs, gallops or rubs. ABDOMEN: Soft and nontender. Bowel sounds are present. No organomegaly appreciated. EXTREMITIES: No clubbing or cyanosis. COVERER: Awake, alert, and oriented x3. Cranial nerves 2 to 7 intact. There is no fasciculation or atrophy noted. No focal deficits observed. ASSESSMENT: 1. Loud snoring, witnessed episodes of stop breathing during the sleep, extremely low position of soft palate Mallampati 4, nasal septal deviation with restriction of nasal breathing, sleepiness with [place] Sleepiness Scale 15. Obstructive sleep apnea hypopnea syndrome. 2. Restless leg symptoms. 3. Depression. 4. History of psoriasis and psoriatic arthritis. 5 asthma. 6 . Fibromyalgia. 7. Hyperlipidemia. 8. Sinuses problems. 9 . Reduction of nasal breathing with nasal septum deviation. 10. Iron deficiency anemia. 11. Mild obesity. PLAN: 1. Polysomnography for evaluation of patient's breathing during sleep. 2. Following plan after reading sleep study. 3. Preferable position during sleep on the side. 4. No driving if patient feels any sleepiness. Patient is aware of civil and criminal liability for unsafe driving. 5. Sleep hygiene with regular sleep time for at least 7.5-8 hours. 6. Watching weight. Thank you very much for referring this patient for consultation. Sincerely, Leopoldo Coleman MD, PhD, FAASM. Diplomat of [place] [employer], Sleep Medicine Board by [place] [employer] [place] [employer] Adjunct Art History Instructor of [facility] [place] Past Medical History Past Medical History: Asthma, Blood Disorder, Hyperlipidemia, Rheumatoid Arthritis (RA) Additional Past Medical History / Comment(s): fibromyalgia, headaches, anemia History of Any Multi-Drug Resistant Organisms: None Reported Past Surgical History: Hysterectomy Additional Past Surgical History / Comment(s): LAPAROSCOPIC X4, OOPHERECTOMY Past Anesthesia/Blood Transfusion Reactions: No Reported Reaction, Postoperative Nausea & Vomiting (PONV) Past Psychological History: Anxiety, Depression Smoking Status: Former smoker Past Alcohol Use History: Occasional Additional Past Alcohol Use History / Comment(s): STARTED SMOKING AT AGE 15 QUIT AUG 2019 SMOKED 1PPD Past Drug Use History: None Reported - Past Family History Sister(s) Family Medical History: Cancer Medications and Allergies Home Medications Medication Instructions Recorded Confirmed Type Albuterol Inhaler [Ventolin Hfa 1 - 2 puff INHALATION Q6HR PRN #2 04/06/19 09/27/19 Rx Inhaler] puff Cholecalciferol [Vitamin D3 (25 1,000 unit PO HS 04/06/19 09/27/19 History Mcg = 1000 Iu)] Multivitamins, Thera [Multivitamin 1 tab PO HS 04/06/19 09/27/19 History (formulary)] [place]-3 Fatty Acids/Fish Oil [Fish 1 cap PO HS 04/06/19 09/27/19 History Oil 1,000 mg Softgel] estradioL [Estrace] 1 mg PO HS 04/06/19 09/27/19 History Fluticasone Nasal [place] [Flonase 2 spr EA NOSTRIL DAILY 09/23/19 09/27/19 History Nasal [place]] Ibuprofen [Motrin] 600 mg PO Q6HR PRN #20 tab 09/15/23 Rx Allergies Allergy/AdvReac Type Severity Reaction Status Date / Time No Known Allergies Allergy Verified 09/15/23 07:53 Physical Exam Vitals: Vital Signs Temp Pulse Resp BP Pulse Ox 02/02/25 15:13 98 F 93 12 129/84 96 Intake and Output 02/02/25 02/02/25 02/02/25 06:59 14:59 22:59 Other: Weight 81.193 kg Sleep Note - Sleep Data ESS Total: 15 - Sleep Note Sleep Note: Temperature: 98 F Pulse Rate: 93 Respiratory Rate: 12 Blood Pressure: 129/84 SpO2: 96 Height: 5 ft 4.5 in Weight: 81.193 kg BMI: Neck Circumference: 14.5
== END ==
LOC: 3 N SLEEP 14:46
PROVIDERS: ATTEND Internal Medicine
DX: G47.33 Obstructive sleep apnea (adult) (pediatric) (principal); G25.81 Restless legs syndrome; F32.A Depression, unspecified; L40.50 Arthropathic psoriasis, unspecified; J45.909 Unspecified asthma, uncomplicated; M79.7 Fibromyalgia; E78.5 Hyperlipidemia, unspecified; J34.2 Deviated nasal septum; D50.9 Iron deficiency anemia, unspecified; E66.9 Obesity, unspecified; Z87.891 Personal history of nicotine dependence
CPT/HCPCS: 99211

== ENCOUNTER → 2025-03-28 | Outpatient (CLI) | payer BC ==
--- NOTE | 2025-04-06 13:24 | P.PCN ---
Description of Procedure: CLINICAL: A home sleep apnea test has been done for confirmation of possible obstructive sleep apnea-hypopnea syndrome. DESCRIPTION OF PROCEDURE: RESULTS: Recording time was 9 hours 46 minutes. Evaluation time was 9 hours 34 minutes. Evaluation time is sufficient for making conclusion about results of the test. Raw data of sleep recording has been reviewed and is adequate. Respiratory channel showed 7 apneas and 70 hypopneas. Apnea-hypopnea index was 8.0 per hour. Pulse rate in the range between minimum 67, maximum 117, average 85 by computer calculation. Lowest desaturation was 84%. IMPRESSION: 1. Obstructive Sleep Apnea Hypopnea Syndrome in mild range, although home sleep apnea test may underestimate severity of sleep apnea. Patient presents with symptoms of significant excessive daytime sleepiness with [place] Sleepiness Scale 15. Please see other impressions from consultation. PLAN: 1. The patient will be started on auto-PAP treatment for correction of respiratory abnormallities during sleep. 2. I will see patient for follow up visit to discuss results of the test, evaluate clinical response on treatment with PAP therapy and make any necessary adjustments related to mask fitting, pressure, and humidification. 3. Watching weight. 4. Sleep hygiene with regular time in bed for at least 8 hours. 5. No driving if feeling any sleepiness. Thank you very much for allowing me to participate in the management of your patient. Sincerely, Leopoldo Coleman MD, PhD, FAASM Diplomat of [place] [employer] Sleep Medicine Board of [place] [employer] [facility] [place] cc: Hermelinda Sumner PA-C
== END ==
LOC: 3 N SLEEP 13:00
PROVIDERS: ATTEND Internal Medicine
DX: G47.33 Obstructive sleep apnea (adult) (pediatric) (principal); Z87.891 Personal history of nicotine dependence